=== PATIENT | female | born 1965 | race Caucasian/White ===

== ENCOUNTER → 2021-06-15 | Outpatient (CLI) | payer BC ==
[~2021-06-15] MED LIST: ASPIRIN CHEWABL81 MG PO; NITROSTAT0.4 MG SL
[2021-06-15 12:31] LABS: BUN/CREATININE RATIO 14 (0-10)
== END ==
LOC: LAB 11:23
PROVIDERS: Physician Assistant
DX: R11.2 Nausea with vomiting, unspecified (principal)
CPT/HCPCS: 36415; 80048